=== PATIENT | female | born 1945 | race Caucasian/White ===

== ENCOUNTER 2024-04-22 12:02 | Observation (INO) ==
[2024-04-22 13:37] LABS: ABS Lymphocytes 1.1 10^3/uL (1.0-4.8); ABS Monocytes 0.3 10^3/uL (0.0-0.9); ABS Neutrophils 6.4 10^3/uL (1.5-7.6); Eosinophil % 0.5 %; Hematocrit 40.2 % (35-45); Hemoglobin 13.5 g/dL (11.5-14.3); Lymphocyte % 13.8 %; Mean Corpuscular Hemoglobin 32.1 pg (27-33); Mean Corpuscular Hgb Conc 33.7 g/dL (31-36); Mean Corpuscular Volume 95.1 fL (80-97); Mean Platelet Volume 7.1 fL (7.5-11.2); Platelet Count 284 10^3/uL (150-450); Red Blood Count 4.22 10^6/uL (3.63-4.92); Red Cell Distribution Width 15.5 % (12-17); White Blood Count 7.9 10^3/uL (3.8-11.8)
[2024-04-22 14:26] LABS: Albumin 4.1 g/dL (3.2-5.2); Albumin/Globulin Ratio 2.2 (1-3); Calcium 9.3 mg/dL (8.6-10.3); Creatinine, Serum 1.03 mg/dL (0.51-0.95); Globulin 1.9 g/dL (2-4); Potassium 3.3 mmol/L (3.5-5.0); Total Bilirubin 0.4 mg/dL (0.2-1.0); eGFR CKD-EPI 55.7 (>60)
[2024-04-22 14:29] LABS: TSH Ultra Thyroid Stim Horm 2.84 mcIU/mL (0.34-5.60)
[2024-04-22] MEDS: Lactated Ringers 1000 ml BAG 1,000 ML IV ONE (16:00)
[2024-04-22] MEDS: Potassium EFFERVES 25 meq TAB PO ONE (16:01)
[2024-04-22] MEDS: Iodixanol 320 (CONTRAST) 100 ML SDV IV ONE (18:21)
[2024-04-22 18:22] LABS: Urine Appearance Clear; Urine Bilirubin Negative (Negative); Urine Blood Negative (Negative); Urine Color Light-Yellow; Urine Glucose Negative (Negative); Urine Ketones 1+ (Negative); Urine Nitrite Negative (Negative); Urine Protein Trace (Negative); Urine Specific Gravity 1.018 (1.002-1.030); Urine Urobilinogen Negative (Negative); Urine pH 7.5 (5.0-8.0)
[2024-04-23] MEDS: Acetaminophen IV 1 GM/100ML 1,000 MG/100 ML BAG IV ONE (00:07)
[2024-04-23] MEDS: Acetaminophen IV 1 GM/100ML 880 MG/88 ML BAG IV ONE (02:21)
[2024-04-23] MEDS: Albuterol/Ipratropium NEB.SOL (2.5/0.5 MG) 3 ML NEB.SOLN INH ONE (08:24)
[2024-04-23 09:38] LABS: PCO2 Arterial 50 mmHg (35-45); PO2 Arterial 85 mmHg (80-100)
[2024-04-23] MEDS: Dexamethasone IV 4 MG/ML VIAL 1 ml VIAL IV SLOW PU ONE (09:58)
[2024-04-23] MEDS ORDERED: Albuterol HFA INHALER 8 gm MDI INH PRN (10:23)
[2024-04-23] MEDS ORDERED: Metoclopramide LIQUID 1 mg/ml 10 ml ORAL.SOLN (10 mg) PO PRN ×2 (11:00→14:18)
[2024-04-23] MEDS: Enoxaparin 30 MG/0.3 ML SYR SUBCUT SCH (12:13)
[2024-04-23 13:08] LABS: Folate 6.14 ng/mL (5.90-24.80)
[2024-04-23 13:09] LABS: Vitamin B12 > 1450 pg/mL (180-914)
[2024-04-23] MEDS: Nicotine PATCH 14 MG/24 HR PATCH TRANSDERM SCH (21:32)
[2024-04-24] MEDS: Tiotropium Brom/Olodaterol MDI (ACUTE) INH SCH (08:01)
[2024-04-24] MEDS: Donepezil HCL 10 mg TAB (NF) PO SCH (10:42)
[2024-04-24] MEDS: Nicotine GUM 2MG FRUIT FLAVOR PO PRN (14:27)
[2024-04-25 18:13] LABS: Calcium 9.4 mg/dL (8.6-10.3); Creatinine, Serum 0.85 mg/dL (0.51-0.95); eGFR CKD-EPI 70.1 (>60)
[2024-04-26 13:38] VITALS: BP 134/74
== END 2024-04-26 17:15 | disposition home or self-care (01) ==
LOC: ED 12:02 → EDHOLD 12:02 → SUATTDRO 04-23 10:22 → MED 04-23 10:59
PROVIDERS: ADMIT Student in an Organized Health Care Education/Training Program; ATTEND Hospitalist